=== PATIENT | male | born 2000 | race Two or more races ===

== ENCOUNTER 2021-10-31 11:45 | Emergency (ER) | payer OTHER, SELFPAY ==
[2021-10-31 11:49] VITALS: BP 132/84; PULSE 90; RESP 18; TEMP 37.2; O2SAT 100
--- NOTE | 2021-10-31 12:00 | PC.NURSE ---
REPORTS SUNDAY AT 1700 HE PUT A CONDOM ON AND HIS FORESKIN BECAME STUCK BELOW HEAD OF PENIS
--- NOTE | 2021-10-31 12:12 | ED.MALEGU ---
HPI - Male Genitourinary General Chief complaint: Urogenital-Male Stated complaint: urogenital Time Seen by Provider: 10/31/21 11:56 Source: patient Mode of arrival: ambulatory Limitations: no limitations History of Present Illness HPI Narrative: Patient is a 21-year-old male complaining of unable to retract back his foreskin, uncircumcised, after putting on a condom 3 days ago. Patient denies any other complaints. Related Data Home Medications Medication Instructions Recorded Confirmed No Home Medications 10/31/21 10/31/21 Allergies Allergy/AdvReac Type Severity Reaction Status Date / Time No Known Allergies Allergy Verified 10/31/21 11:51 Review of Systems Review of Systems: All systems reviewed & are unremarkable except as noted in HPI and below Constitutional: Constitutional: Reports as per HPI, Denies body ache(s), Denies chills, Denies excessive sweating, Denies fatigue, Denies fever(s), Denies headache(s), Denies lethargy, Denies malaise, Denies weakness and Denies weight loss Eyes: Eyes: Denies blurry vision, Denies change in vision and Denies loss of vision ENT: Denies dizziness, Denies ear discharge, Denies headache(s), Denies lip swelling, Denies epistaxis, Denies nasal congestion, Denies neck pain, Denies throat swelling and Denies tongue swelling Cardiovascular: Cardiovascular: Denies chest pain, Denies chest pain at rest, Denies chest pain with activity, Denies diaphoresis, Denies rapid heart rate, Denies edema, Denies irregular heart rhythm, Denies lightheadedness, Denies palpitations, Denies dyspnea and Denies dyspnea on exertion Respiratory: Respiratory: Denies chest congestion, Denies cough, Denies hemoptysis, Denies dyspnea and Denies dyspnea on exertion Gastrointestinal: Gastrointestinal: Denies abdominal pain, Denies melena, Denies hematochezia, Denies diarrhea, Denies nausea, Denies vomiting and Denies hematemesis Musculoskeletal: Musculoskeletal: Denies abnormal gait, Denies deformity, Denies joint swelling, Denies limited range of motion, Denies neck pain and Denies numbness Neurologic: Denies Abnormal speech present, Denies abnormal gait, Denies confusion, Denies dizziness, Denies headache(s), Denies focal weakness, Denies loss of vision, Denies numbness, Denies Other visual disturbances, Denies Sensory deficit (Neuro) and Denies weakness Psychiatric: Psychiatric: Denies confusion, Denies depression, Denies auditory hallucinations, Denies homicidal ideation and Denies suicidal ideation Endocrine: Endocrine: Denies cold intolerance, Denies excessive sweating, Denies fatigue, Denies heat intolerance and Denies palpitations Hematologic/Lymphatic: Hematologic/Lymphatic: Denies easy bleeding and Denies easy bruising Allergic/Immunologic: Allergic/Immunologic: Denies lip swelling, Denies throat swelling and Denies tongue swelling PMFSH Comments Past medical history: None Family history: None Social history: Non-smoker no EtOH or drug use Exam Const: General: cooperative, healthy appearing, comfortable, no acute distress, well developed, alert and awake; No confusion Orientation/consciousness: oriented to person, oriented to place, oriented to time, patient oriented x3 and No confusion Limitations: no limitations HENMT: Head: normal to inspection, normocephalic and atraumatic Ears: hearing grossly normal bilaterally, TM normal on the right and TM normal on the left General nose exam: Normal external nose present, Normal nares present and No nasal discharge present Face and sinus: normal facial exam Mouth: Yes Normal oral and palatal mucosa present, Yes lip normal, Yes tongue normal and Yes oropharynx normal Throat: posterior oropharynx normal, tonsils normal and uvula midline Eyes: General: appearance normal, both eyes and all related structures Pupils: Equal, round and reactive pupils present EOM: EOMs intact bilaterally Neck: Neck: normal visual inspection, full ROM, no lymphadenopathy and
--- NOTE | 2021-10-31 16:54 | P.CONUR_ITS ---
Assessment and Plan Assessment and plan (1) Paraphimosis: Code(s): N47.2 - Paraphimosis Status: Acute Assessment and Plan: The paraphimosis reduced. The meatus is normal. The phallus is normal as well. There is some preputial edema which should improve. Reassurance provided. No urologic follow-up needed Urology Consult Note HPI Date Seen: 10/31/21 Primary Care Provider: [employer]IC[employer] Consult Narrative Narrative: Brendan Painter is a 21 year old male see other question emergency room. He is a director [employer]. He is from [facility]. He is uncircumcised. He used a condom on Sunday. This resulted in his foreskin being retracted behind the glans. He did not replace his foreskin. He had pain and swelling. He presented the emergency room. He had no voiding complaints. His paraphimosis was reduced. There is still some preputial swelling. Review of Systems Review of Systems: All systems reviewed & are unremarkable except as noted in HPI and below Meds Home Medications and Allergies Home Medications Medication Instructions Recorded Confirmed Type No Home Medications 10/31/21 10/31/21 History Allergies Allergy/AdvReac Type Severity Reaction Status Date / Time No Known Allergies Allergy Verified 10/31/21 11:51 Vital Signs Vital Signs - 24 hr 10/31/21 11:49 Temperature 98.9 F Pulse Rate 90 Respiratory Rate 18 Blood Pressure 132/84 Pulse Oximetry 100 Exam Const: General: cooperative, healthy appearing, comfortable, alert and awake; No confusion Orientation/consciousness: patient oriented x3 HENMT: Head: normal to inspection General nose exam: Normal external nose present Mouth: Yes Normal oral and palatal mucosa present Eyes: General: appearance normal, both eyes and all related structures Neck: Neck: normal visual inspection and full ROM Resp: Effort & Inspection: normal respiratory effort, able to speak in complete sentences and no cough : Male General Exam: Yes normal external exam, Yes edema, No erythema and No lacerations Penis: Yes normal penis, Yes uncircumcised, No condyloma, No erythematous and No mass Meatus: meatus normal Scrotum: scrotum normal Testes: testicular lie normal Skin: General skin exam: normal color and no rashes or lesions noted Neuro: General: oriented to person, oriented to place and oriented to time Extrem: General: normal to inspection Psych: Appearance: grossly normal and well kempt
[2021-10-31 17:04] VITALS: BP 130/87; PULSE 89; RESP 18; O2SAT 100
== END 2021-10-31 17:09 | disposition home or self-care (01) ==
PROVIDERS: Emergency Provider Emergency Medicine
DX: N47.2 Paraphimosis (principal)
CPT/HCPCS: 99282